=== PATIENT | female | born 1970 | race Caucasian/White ===

== ENCOUNTER 2023-03-13 13:41 | Outpatient (OUT) | payer OTHER, SELFPAY ==
--- NOTE | 2023-03-13 13:52 | FL_ITS ---
[address] [address] Patient Name: RAMOS REYES MRN: [id number] date: 1970 Sex: F Assigned Patient Location: [place] Current Patient Location: [place] Accession/Order Number: [id number] Exam Date: 03/13/2023 14:05 Report Date: 03/13/2023 14:39 At the request of: CHARITO LEI Procedure: FL modified barium swallow EXAMINATION: FL modified barium swallow HISTORY: Dysphagia R13.10, Goiter E04.9 COMPARISON: No relevant comparison available. TECHNIQUE: A swallowing evaluation was performed with fluoroscopy in the usual manner. Standard level fluoroscopic mode of operation utilized. Speech pathology was present. The procedure was recorded FINDINGS: ORAL PHASE: Normal deglutition. PHARYNGEAL PHASE: Normal swallowing. ASPIRATION: None. STRUCTURE: Normal. No visible obstruction, stricture, or dilatation. OTHER: Negative. FL/FL modified barium swallow IMPRESSION: Normal examination. Electronically authenticated by: JENNA CRAIG Date: 03/13/2023 14:39
--- NOTE | 2023-03-13 13:57 | US_ITS ---
The [address] [address] Patient Name: RAMOS REYES MRN: [id number] date: 1970 Sex: F Assigned Patient Location: [place] Current Patient Location: [place] Accession/Order Number: [id number] Exam Date: 03/13/2023 14:05 Report Date: 03/13/2023 15:46 At the request of: CHARITO LEI Procedure: US thyroid EXAM: US thyroid HISTORY: goiter E04.9 COMPARISON: None. TECHNIQUE: Multiple sonographic images of the thyroid gland were obtained, supplemented with Doppler. FINDINGS: The right lobe measures 5.8 x 1.4 x 1.3 cm. Homogeneous echoes are noted throughout. No focal abnormality is identified within. The left lobe measures 4.4 x 0.9 x 1.2 cm. Homogeneous echoes are noted throughout. A small cyst is seen in the mid aspect measuring 0.4 x 0.2 x 0.2 cm. No other nodule is identified. The isthmus measures 2 mm in thickness. There is no evidence of a focal mass or abnormal fluid collection surrounding the gland. US/US thyroid IMPRESSION: The right lobe of the thyroid gland is enlarged. A small cyst is seen in the left lobe, which is not significant. No other nodule is identified in either lobe. TI RADS 2. Direct comparison with a previous study may be helpful in determining the chronicity of these findings. Biopsy is not recommended at this time. Follow-up study as clinically indicated. Electronically authenticated by: DAISY SAMUELS Date: 03/13/2023 15:46
== END 2023-03-13 13:42 | disposition home or self-care (01) ==
LOC: FL 13:45
PROVIDERS: PCP Nurse Practitioner; Visit Provider Nurse Practitioner
DX: R13.10 Dysphagia, unspecified (principal); E04.9 Nontoxic goiter, unspecified
CPT/HCPCS: 74230; 76536; 92611

== ENCOUNTER 2023-11-15 15:16 | Outpatient (OUT) | payer OTHER, SELFPAY ==
--- NOTE | 2023-11-15 15:20 | US_ITS ---
The [address] [address] Patient Name: RAMOS REYES MRN: [id number] date: 1970 Sex: F Assigned Patient Location: [place] Current Patient Location: Accession/Order Number: [id number] Exam Date: 11/15/2023 15:21 Report Date: 11/16/2023 09:09 At the request of: CHARITO LEI Procedure: US thyroid EXAMINATION: US thyroid HISTORY: thyroid cyst left node; enlarged right lobe COMPARISON: 03/13/2023 TECHNIQUE: Sonographic images of the thyroid gland were obtained. FINDINGS: The right thyroid lobe measures 5.9 x 1.2 x 1.3 cm. Homogeneous echotexture with no focal nodules. The thyroid isthmus measures 2 mm. No focal nodule The left thyroid lobe measures 4.2 x 1.3 x 0.7 cm. Area of anechoic echogenicity measuring 3.1 mm, cyst is favored. TR 1 US/US thyroid IMPRESSION: Stable 3 mm left thyroid cyst TI-RADS: TI-RADS 1: Normal thyroid gland. No focal lesion. Electronically authenticated by: JENNA CRAIG Date: 11/16/2023 09:09
== END 2023-11-15 15:17 | disposition home or self-care (01) ==
LOC: US 15:16
PROVIDERS: PCP Nurse Practitioner; Visit Provider Nurse Practitioner
DX: E04.1 Nontoxic single thyroid nodule (principal); E04.9 Nontoxic goiter, unspecified
CPT/HCPCS: 76536